=== PATIENT | female | born 1985 | race Caucasian/White ===

== ENCOUNTER → 2016-05-28 | Outpatient (CLI) | payer MEDICARE, MEDICAID ==
[~2016-05-28] MED LIST: COLA100C PO; IBUP80TA PO; LAMI1TAB7 PO; LAMI25TA PO; NUVAMIS2 VA; TYLE325T5 PO
--- NOTE | 2016-05-28 13:08 | REP ---
ULTRASOUND LEFT BREAST: Real-time sonographic evaluation of left breast performed status post trauma 1 day ago. Patient has had pain and bloody discharge with a retroareolar lump. The sonogram shows dilated ducts with internal debris. No discrete cystic or solid mass is seen. IMPRESSION: ACR 2 benign. At the site of the reported retroareolar abnormality, there are dilated ducts containing internal debris without a cystic or solid mass. Signed by Dinesh Gaitan MD 05/29/2016 04:36 P
== END ==
LOC: M RAD 11:08
PROVIDERS: ATTEND Physician Assistant Medical
DX: N64.52 Nipple discharge (principal); N63 Unspecified lump in breast; R92.8 Other abnormal and inconclusive findings on diagnostic imaging of breast

== ENCOUNTER → 2016-08-22 | Outpatient (REF) | payer MEDICARE, MEDICAID ==
[~2016-08-22] MED LIST changes: -COLA100C PO; +COLA100C3 PO
== END ==
LOC: M LAB REF 10:27
PROVIDERS: ATTEND Physician Assistant Medical
DX: N39.0 Urinary tract infection, site not specified (principal); Z20.2 Contact with and (suspected) exposure to infections with a predominantly sexual mode of transmission; Z11.3 Encounter for screening for infections with a predominantly sexual mode of transmission

== ENCOUNTER 2016-10-01 10:45 | Emergency (ER) | payer MEDICARE, MEDICAID ==
[~2016-10-01] VITALS: Ht 160 cm; Wt 86.3 kg
[~2016-10-01 10:45] MED LIST changes: -COLA100C3 PO; +COLA100C5 PO
[2016-10-01] MEDS ORDERED: AMIT25TA PO (10:58)
[2016-10-01] MEDS ORDERED: KLON0.5T PO (10:58)
[2016-10-01] MEDS ORDERED: LAMI1TAB9 PO (10:58)
[2016-10-01 12:58] VITALS: BP 127/68
--- NOTE | 2016-10-01 13:14 | REP ---
Focused bilateral subareolar breast sonography: History: Areolar pain. Question abscess. The patient reports a lump adjacent to the left nipple which has " gotten smaller". Present since May. Findings: Subareolar sonography of the right breast shows no abnormality, done for comparison. Just posterior and along the medial aspect of the left nipple is a small hypoechoic area consistent with fluid collection measuring 0.8 x 0.7 x 0.6 cm. A tiny abscess cannot be excluded. Followup is advised. Impression: 0.8 cm irregular fluid collection just deep and medial to the left nipple. Abscess cannot be excluded. Suggest followup. Signed by Jeffy Greco MD 10/01/2016 02:04 P
[2016-10-01] MEDS ORDERED: IBUP-1022 PO (13:44)
--- NOTE | 2016-10-02 15:04 | ED PDOC ---
Post-Departure Follow-Up heide moe faxed formal report of breast us for fu Chichi Curiel MD Oct 02, 2016 15:04
[2016-11-14] MEDS ORDERED: NITR2OI (11:30)
== END 2016-10-01 14:07 | disposition home or self-care (01) ==
LOC: M ED 10:45
DX: N60.02 Solitary cyst of left breast (principal); F31.9 Bipolar disorder, unspecified; F17.200 Nicotine dependence, unspecified, uncomplicated; Z79.899 Other long term (current) drug therapy

== ENCOUNTER 2016-10-18 21:21 | Emergency (ER) | payer MEDICARE, MEDICAID ==
[~2016-10-18] VITALS: Ht 160 cm; Wt 86.4 kg
[~2016-10-18 21:21] MED LIST changes: +AMIT25TA PO; +IBUP-1022 PO; +KLON0.5T PO; +LAMI1TAB9 PO
[2016-10-18] MEDS ORDERED: AMAN100T PO (21:37)
[2016-10-18] MEDS ORDERED: methylPREDNISolone INJ 125 MG/2 ML VIAL (J2930) IM ONE (21:45)
[2016-10-18] MEDS ORDERED: FAMOTIDINE 20 MG TAB PO ONE (21:45)
[2016-10-18] MEDS ORDERED: ALBUTEROL 90 MCG/ACT 8GM HFA INHALER INH ONE (21:45)
[2016-10-18 22:27] VITALS: BP 136/67
[2016-11-14] MEDS ORDERED: NITR2OI (11:30)
== END 2016-10-18 22:26 | disposition home or self-care (01) ==
LOC: M ED 21:21
DX: T78.49XA Other allergy, initial encounter (principal); F17.210 Nicotine dependence, cigarettes, uncomplicated; E66.9 Obesity, unspecified; F99 Mental disorder, not otherwise specified; Y92.89 Other specified places as the place of occurrence of the external cause; Y99.9 Unspecified external cause status; Y93.9 Activity, unspecified; Z79.899 Other long term (current) drug therapy
CPT/HCPCS: 96372; 99282; J2930

== ENCOUNTER 2016-10-20 17:20 | Emergency (ER) | payer MEDICARE, MEDICAID ==
[~2016-10-20] VITALS: Ht 160 cm; Wt 86.9 kg
[~2016-10-20 17:20] MED LIST changes: +AMAN100T PO
[2016-10-20] MEDS ORDERED: LORATADINE 10 MG TAB PO ONE (18:15)
[2016-10-20] MEDS ORDERED: dexameTHASONE 20 MG/5 ML VIAL (J1100) IM ONE (18:15)
[2016-10-20] MEDS ORDERED: IBUPROFEN 800 MG TAB PO ONE (18:15)
--- NOTE | 2016-10-20 19:03 | REP ---
SOFT-TISSUE NECK SERIES: 10/20/2016. Clinical history: Difficulty swallowing. Comparison: Three-view cervical spine 2010. Findings: There is no torticollis or lateral bending on the AP view. The dens appears intact. Its relationship to C1 on the lateral view is normal. There is no prevertebral swelling or radiopaque foreign body. The nasopharynx, oropharynx and hypopharynx intact. Vertebral bodies intact. Slight reversal of lordosis similar to the study 6 years ago. The trachea and subglottic trachea without significant finding. Impression: 1. I do not see evidence of significant abnormality of the soft tissues of the neck. Incidentally noted are metallic studs in the nose and lower lip. No other findings. No foreign body. Signed by Varun Kraus MD 10/20/2016 09:28 P
[2016-10-20] MEDS ORDERED: MEDR4PAK PO (19:10)
[2016-10-20 19:16] VITALS: BP 115/63
[2016-11-14] MEDS ORDERED: NITR2OI (11:30)
== END 2016-10-20 19:24 | disposition home or self-care (01) ==
LOC: M ED 17:20
DX: T78.40XA Allergy, unspecified, initial encounter (principal); X58.XXXA Exposure to other specified factors, initial encounter; Y92.9 Unspecified place or not applicable; Y93.9 Activity, unspecified; Y99.8 Other external cause status; R13.10 Dysphagia, unspecified; R07.0 Pain in throat; F31.9 Bipolar disorder, unspecified; F17.200 Nicotine dependence, unspecified, uncomplicated
CPT/HCPCS: 70360; 96372; 99282; J1100

== ENCOUNTER → 2016-11-03 | Outpatient (CLI) | payer MEDICARE, MEDICAID ==
[~2016-11-03] MED LIST changes: +HYDR-3713 PO; +LIDOCAINE 1% MDV 20ML VIAL As Ordered ONE; +MEDR4PAK PO; +NITR2OI
--- NOTE | 2016-11-03 12:36 | REP ---
ULTRASOUND LEFT BREAST: Real-time sonographic evaluation of the left breast is performed prior to a scheduled fluid aspiration in the left retroareolar region. This 8 mm fluid collection was seen on the prior ultrasound 10/01/2016. Today's ultrasound shows soft tissue edema with some hyperemia with Doppler color evaluation. There are some dilated ducts. No discrete fluid collection is seen and therefore, fluid drainage was not performed. Reportedly, there is a palpable abnormality at 9 -o'clock position. A skin lesion in this region expressed some complex, somewhat bloody fluid which was sent for Gram stain, culture and sensitivity. Signed by Dinesh Gaitan MD 11/03/2016 12:54 P
== END ==
LOC: M RADPRO 08:42
PROVIDERS: ATTEND Surgery
DX: N63 Unspecified lump in breast (principal); M79.9 Soft tissue disorder, unspecified; N64.59 Other signs and symptoms in breast; N60.42 Mammary duct ectasia of left breast; Z88.2 Allergy status to sulfonamides; Z88.0 Allergy status to penicillin; Z88.8 Allergy status to other drugs, medicaments and biological substances
CPT/HCPCS: 76642; 87070; 87075; 87076; 87205; G0463

== ENCOUNTER 2016-11-21 09:00 | Day surgery (SDC) | payer MEDICARE, MEDICAID ==
[~2016-11-21] VITALS: Ht 160 cm; Wt 87.5 kg
[~2016-11-21 09:00] MED LIST changes: -HYDR-3713 PO; -LIDOCAINE 1% MDV 20ML VIAL As Ordered ONE; +LR 1,000 ML IV ONE
[2016-11-21] MEDS ORDERED: LIDOCAINE 2% INJ 100 MG/5 ML SDV (FOR ANES.) As Ordered ONE (09:13)
[2016-11-21] MEDS ORDERED: PROPOFOL 200 MG/20 ML VIAL As Ordered ONE (09:13)
[2016-11-21] MEDS ORDERED: MIDAZOLAM INJ 2 MG/2 ML VIAL (J2250) As Ordered ONE (09:14)
[2016-11-21] MEDS ORDERED: fentaNYL 100 MCG/2 ML INJECTION (J3010) As Ordered ONE (09:14)
[2016-11-21 09:28] LABS: CONTROL LINE UCG INT CTR LINE PRESENT
[2016-11-21 09:34] VITALS: BP 113/60
[2016-11-21] MEDS ORDERED: KETOROLAC 60 MG/2 ML VIAL (J1885) As Ordered ONE ×2 (09:37→11:09)
[2016-11-21] MEDS ORDERED: CLINDAMYCIN 600 MG/50 ML PREMIX BAG As Ordered ONE (09:55)
[2016-11-21] MEDS ORDERED: CLINDAMYCIN 600 MG in APPROPRIATE DILUENT 1 EA IV ONE (10:00)
[2016-11-21] MEDS ORDERED: LIDOCAINE 1% SDV INJ 30 ML VIAL As Ordered ONE (10:18)
[2016-11-21] MEDS ORDERED: LIDOCAINE W/EPINEPHRINE 1% 20ML VIAL As Ordered ONE (10:18)
[2016-11-21] MEDS ORDERED: BUPIVACAINE HCL 0.25% 30 ML VIAL As Ordered ONE (11:03)
[2016-11-21] MEDS ORDERED: ONDANSETRON 4MG/2ML VIAL (J2405) As Ordered ONE (11:09)
[2016-11-21] MEDS ORDERED: HYDR-3713 PO (11:42)
--- NOTE | 2016-12-01 12:05 | ROOPDOC ---
[facility] Report Of Operation Report of Operation DATE OF PROCEDURE: 11/21/16 PREPROCEDURE DIAGNOSES: Recurrent nipple discharge, drainage, periductal mastitis, left breast POSTPROCEDURE DIAGNOSES: Periductal mastitis, left breast. PROCEDURE: Single quadrant ductal excision with lumpectomy (upper inner quadrant from 10 to 12 o'clock position) SURGEON: Christiano Bauer MD VACUUM CLOSING MACHINE OPERATOR: None ANESTHESIA: Gen. anesthesia via LMA. ESTIMATED BLOOD LOSS: Approximately 5 mLs COMPLICATIONS: None. REMARKS/OPERATIVE FINDINGS: She has 2 ductal areas with inducible drainage one at the 3 o'clock position and the other at the 9 o'clock position also at the center of the nipple. This were cannulated with a lacrimal probe. The duct over at a 9 o'clock position appears closed. The duct at the 3 o'clock position was able to be cannulated and appears to be directed towards an area at the upper inner quadrant of the breast where there is a palpable cystic nodularity that is tender to the patient during my clinical examination. The ducts and breast tissue underneath the upper inner quadrant is nodular, slightly hard and consistent with previous inflammatory reaction to the area though I did not feel appropriate any significant, dominant masses. PROCEDURE NOTE: 31-year-old female with recurrent purulent drainage from multiple ducts on her left breast with failed treatment with antibiotics.. DESCRIPTION OF PROCEDURE: The patient was taken to the operating room and placed supine on the operating table and general anesthesia was induced using LMA. She received a dose of 600 mg clindamycin IV preoperatively for wound prophylaxis given multiple breast infections. A time-out was completed verifying correct patient, procedure, site , positioning, and implant( s) and/ or special equipment prior to beginning this procedure. The left chest axilla, and arm were prepped and draped in the usual sterile fashion. A lacrimal duct probe was used to cannulate the draining duct at the 3 oclock location on the nipple. The relevant quadrant was identified and mixture of 1 % lidocaine without epinephrine and 0.25% Marcaine was used to infiltrate the region. A circumareolar/ radially oriented incision was made and flaps were elevated. Using the lacrimal duct probe as a guide, the involved duct was excised sharply from its termination on the nipple with a wedge-shaped portion of the proximal breast tissue. Additional local anesthesia was infiltrated as needed throughout the case and The wound was checked for adequate hemostasis and bleeding points cauterized. The subcutaneous tissue immediately under the skin was approximated with interrupted 3-0 Vicryl sutures. No attempt was made to close the space. The breast tissue was approximated with 3-0 Vicryl. The skin was closed with a subcuticular suture of running 4-0 Monocry. Dermabond dressing was applied on top of the incision. The patient tolerated the procedure well and was taken to the postanesthesia care unit in stable condition. CHRISTIANO BAEUR MD Dec 01, 2016 12:05
--- NOTE | 2016-12-01 12:11 | IPNPDOC ---
Text Note Date of Service Patient underwent ductal excision of the left breast. NOTE Patient uneventfully went for a duct excision of a recurrent left breast abscess , purulent drainage. She was suspected periductal mastitis. This was done under general anesthesia under LMA. On being brought to the recovery room, patient was awake but noticeably agitated. She claims that her incision was left open so on my examination the incision remains intact with a Dermabond dressing on top of the incision. There is a usual coagulated blood underneath the Dermabond glue. No breast swelling or hematoma was noted. Patient was removing her monitoring leads in was not willing to be monitored postoperatively. Anesthesia as well as the perioperative nursing team was present trying to calm her down to no avail. I made a call to psychiatry to have her be evaluated but the patient walked out off the hospital before this can be done. I also made a call to her next of kin to inform them of what was going on and to talk to her and calm her down. After making the calls, I returned to the patient's cubicle she was already dressed and on her phone. She would not take the phone call from her next of kin which turned out to be her mother. Despite everyone doing her best trying to calm her down she persisted getting out of the operating room suite and left the hospital on her own accord. Calls were made to the administration secondary education professor with regards to what to do with the circumstances I have never experienced this previously. Patient appears well oriented though visibly agitated. She walked towards the [facility] on her phone. I further gave call to her mother as well as to her sister was supposed to pick her up to inform them of what was going on. EBE WOODALL MD Dec 01, 2016 12:11
== END 2016-11-21 12:07 | disposition home or self-care (01) ==
LOC: M SDC 09:00
PROVIDERS: ATTEND Surgery
DX: N61.0 Mastitis without abscess (principal); K60.2 Anal fissure, unspecified; F31.9 Bipolar disorder, unspecified; F41.9 Anxiety disorder, unspecified; Z88.0 Allergy status to penicillin; Z88.1 Allergy status to other antibiotic agents; Z88.2 Allergy status to sulfonamides; Z88.8 Allergy status to other drugs, medicaments and biological substances; Z79.899 Other long term (current) drug therapy; Z72.0 Tobacco use
CPT/HCPCS: 19110; 84703; 88305; 96374; J1885; J2250; J2405; J3010

== ENCOUNTER → 2016-12-11 | Outpatient (REF) | payer MEDICARE, MEDICAID ==
[~2016-12-11] MED LIST changes: +HYDR-3713 PO; -LR 1,000 ML IV ONE
== END ==
LOC: M LAB REF 13:16
PROVIDERS: ATTEND Otolaryngology
DX: R22.9 Localized swelling, mass and lump, unspecified (principal)

== ENCOUNTER → 2016-12-31 | Outpatient (CLI) | payer MEDICARE, MEDICAID ==
[2017-01-04 12:26] LABS: IMMUNOGLOBULIN E, TOTAL 45 IU/mL (0-100)
== END ==
LOC: M LAB 12:33
PROVIDERS: ATTEND Surgery
DX: Z01.82 Encounter for allergy testing (principal)

== ENCOUNTER 2017-02-05 12:12 | Emergency (ER) | payer MEDICARE, MEDICAID ==
[~2017-02-05] VITALS: Ht 160 cm; Wt 90.5 kg
[2017-02-05 12:13] VITALS: BP 142/79
[2017-02-05] MEDS ORDERED: ABIL1INJ IM (12:22)
== END 2017-02-05 13:18 | disposition left against medical advice (07) ==
LOC: M ED 12:12
DX: Z53.21 Procedure and treatment not carried out due to patient leaving prior to being seen by health care provider (principal)

== ENCOUNTER 2017-02-19 16:01 | Emergency (ER) | payer MEDICARE, MEDICAID ==
[~2017-02-19 16:01] MED LIST changes: +ABIL1INJ IM
[2017-02-19 16:02] VITALS: BP 125/61
[2017-02-19 17:34] LABS: MEAN CORPUSCULAR HEMOGLOBIN 30.6 pg (27.0-33.0); MEAN CORPUSCULAR HGB CONC 33.9 g/dl (32.0-36.5); MEAN CORPUSCULAR VOLUME 90.4 fl (80.0-96.0); PLATELET COUNT, AUTOMATED 274 10^3/uL (150-450); RED CELL DISTRIBUTION WIDTH 12.7 % (11.5-14.5)
[2017-02-19 17:43] LABS: CONTROL LINE HCG INT CTR LINE PRESENT
== END 2017-02-19 20:08 | disposition left against medical advice (07) ==
LOC: M ED 16:01
DX: R10.2 Pelvic and perineal pain (principal); F31.9 Bipolar disorder, unspecified; F17.210 Nicotine dependence, cigarettes, uncomplicated; Z88.0 Allergy status to penicillin; Z32.01 Encounter for pregnancy test, result positive; Z88.1 Allergy status to other antibiotic agents; Z88.2 Allergy status to sulfonamides; Z88.8 Allergy status to other drugs, medicaments and biological substances; Z91.040 Latex allergy status; Z79.899 Other long term (current) drug therapy

== ENCOUNTER 2017-02-20 12:52 | Emergency (ER) | payer MEDICARE, MEDICAID ==
[~2017-02-20] VITALS: Ht 160 cm; Wt 89.5 kg
[2017-02-20 12:53] VITALS: BP 116/58
== END 2017-02-20 15:34 | disposition left against medical advice (07) ==
LOC: M ED 12:52
DX: Z53.21 Procedure and treatment not carried out due to patient leaving prior to being seen by health care provider (principal)

== ENCOUNTER → 2017-04-02 | Outpatient (CLI) | payer MEDICARE, MEDICAID ==
[2017-04-02 14:03] LABS: BASO % 0.2 % (0.0-1.0); EOS # 0.1 10^3/uL (0.0-0.50); EOS % 0.7 % (0.0-3.0); HEMATOCRIT 37.2 % (36.0-47.0); HEMOGLOBIN 12.5 g/dl (12.0-16.0); IMMATURE GRANULOCYTE # 0.1 10^3/uL (0-0); IMMATURE GRANULOCYTE % 0.5 % (0-0); LYMPH # 2.4 10^3/uL (1.5-6.5); LYMPH % 19.5 % (24.0-44.0); MEAN CORPUSCULAR HEMOGLOBIN 30.1 pg (27.0-33.0); MEAN CORPUSCULAR HGB CONC 33.6 g/dl (32.0-36.5); MEAN CORPUSCULAR VOLUME 89.6 fl (80.0-96.0); MONO # 0.8 10^3/uL (0.0-0.8); MONO % 6.6 % (0.0-5.0); NEUTROPHILS % 72.5 % (36.0-66.0); PLATELET COUNT, AUTOMATED 257 10^3/uL (150-450); RED BLOOD COUNT 4.15 10^6/uL (4.00-5.40); RED CELL DISTRIBUTION WIDTH 13.3 % (11.5-14.5); WHITE BLOOD COUNT 12.4 10^3/uL (4.0-10.0)
[2017-04-02 16:25] LABS: CHLAMYDIA DNA AMPLIFICATION NEGATIVE (NEGATIVE); GC DNA AMPLIFICATION NEGATIVE (NEGATIVE)
[2017-04-03 17:54] LABS: RUBELLA IgG QUALITATIVE IMMUNE (IMMUNE)
[2017-04-03 18:08] LABS: HBsAg Prenatal NEGATIVE (NEGATIVE)
[2017-04-03 18:18] LABS: HEPATITIS C VIRUS ABY INDEX 0.1 INDEX (<0.8)
[2017-04-03 18:28] LABS: HIV 1&2 SCREEN CENTAUR NEGATIVE (NEGATIVE)
== END ==
LOC: M SMT 11:23
DX: Z36.89 Encounter for other specified antenatal screening (principal); Z3A.01 Less than 8 weeks gestation of pregnancy
CPT/HCPCS: 86762

== ENCOUNTER → 2017-05-25 | Outpatient (CLI) | payer MEDICARE, MEDICAID | LOC: M RAD 13:04 | DX: Z36.89 Encounter for other specified antenatal screening (principal); Z3A.20 20 weeks gestation of pregnancy | CPT/HCPCS: 76811 ==

== ENCOUNTER → 2017-07-03 | Outpatient (CLI) | payer MEDICARE, MEDICAID ==
[2017-07-03 13:05] LABS: HEMATOCRIT 31.2 % (36.0-47.0); HEMOGLOBIN 10.5 g/dl (12.0-15.5); MEAN CORPUSCULAR HEMOGLOBIN 30.7 pg (27.0-33.0); MEAN CORPUSCULAR HGB CONC 33.7 g/dl (32.0-36.5); MEAN CORPUSCULAR VOLUME 91.2 fl (80.0-96.0); PLATELET COUNT, AUTOMATED 226 10^3/uL (150-450); RED BLOOD COUNT 3.42 10^6/uL (4.00-5.40); RED CELL DISTRIBUTION WIDTH 13.2 % (11.5-14.5); WHITE BLOOD COUNT 12.8 10^3/uL (4.0-10.0)
[2017-07-03 13:43] LABS: GLUCOSE CHALLENGE TEST 1 HOUR 125 MG/DL (LESS THAN 140)
[2017-07-06 08:44] LABS: RH ONLY RHOGAM 1 1
== END ==
LOC: M SMT 10:38
DX: Z36.89 Encounter for other specified antenatal screening (principal); Z3A.00 Weeks of gestation of pregnancy not specified
CPT/HCPCS: 82950

== ENCOUNTER 2017-10-10 15:53 | Inpatient (IN) | payer MEDICARE, MEDICAID ==
[2017-10-10] MEDS: miSOPROStol 50 MCG 1/2 TAB (S0191) PO (17:09)
[2017-10-10 17:14] LABS: HEMATOCRIT 31.2 % (36.0-47.0); HEMOGLOBIN 10.6 g/dl (12.0-15.5); MEAN CORPUSCULAR VOLUME 85.2 fl (80.0-96.0); PLATELET COUNT, AUTOMATED 210 10^3/uL (150-450); RED BLOOD COUNT 3.66 10^6/uL (4.00-5.40); RED CELL DISTRIBUTION WIDTH 14.1 % (11.5-14.5); WHITE BLOOD COUNT 13.6 10^3/uL (4.0-10.0)
[2017-10-10 17:36] LABS: AMPHETAMINES URINE REFLEX NEGATIVE (NEGATIVE); BARBITURATES URINE REFLEX NEGATIVE (NEGATIVE); BENZODIAZEPINES URINE REFLEX NEGATIVE (NEGATIVE); COCAINE METABOLITE URINE REFLE NEGATIVE (NEGATIVE); METHADONE URINE REFLEX NEGATIVE (NEGATIVE); OPIATES URINE REFLEX NEGATIVE (NEGATIVE); PHENCYCLIDINE URINE REFLEX NEGATIVE (NEGATIVE)
[2017-10-10 17:48] LABS: CANNABINOIDS URINE REFLEX PENDING CONFIRMATION (NEGATIVE)
[2017-10-10] MEDS: LR 1,000 ML IV (21:26)
[2017-10-10] MEDS: OXYTOCIN DRIP 30 UNITS in APPROPRIATE DILUENT 1 EA IV (21:30)
[2017-10-10] MEDS: FAMOTIDINE 20 MG TAB PO (22:43)
[2017-10-11] MEDS ORDERED: FENTANYL 2MCG/ML ROPIVACAINE 0.2% IN 0.9% NACL 200ML IVBAG As Ordered (00:10)
[2017-10-11] MEDS: LR 1,000 ML IV ×5 (01:14→14:00)
[2017-10-11] MEDS ORDERED: EPIDURAL/PCA KEYS XX (01:15)
[2017-10-11] MEDS ORDERED: ONDANSETRON 4MG/2ML VIAL (J2405) IV ×4 (01:15→14:00)
[2017-10-11] MEDS ORDERED: NALOXONE INJ 0.4 MG/1 ML VIAL (J2310) IV ×3 (01:15→13:36)
[2017-10-11] MEDS ORDERED: diphenhydrAMINE INJ 50MG/ML VIAL (J1200) IV (01:15)
[2017-10-11] MEDS ORDERED: EPIDURAL COMMENT XX (01:15)
[2017-10-11] MEDS ORDERED: ePHEDrine SULFATE 25 MG/5 ML(5MG/ML) SYRINGE IV (01:15)
[2017-10-11] MEDS ORDERED: FENTANYL/ROPIVACAINE/NACL BAG 200 ML EPIDURAL (01:15)
[2017-10-11] MEDS ORDERED: LACTATED RINGER'S 1000 ML IV (01:15)
[2017-10-11] MEDS ORDERED: REFRIGERATOR IV KEYS XX (01:15)
[2017-10-11] MEDS: PRENATAL VITAMINS CHEWABLE TABLET PO (09:00)
[2017-10-11] MEDS: DOCUSATE SODIUM 100 MG CAP PO ×2 (09:00→20:44)
[2017-10-11] MEDS ORDERED: BICITRA 30ML SOLN UDC As Ordered (11:44)
[2017-10-11] MEDS ORDERED: ceFAZolin 2 GM/D5W 50 ML IV BAG (J0690 PER 500MG) As Ordered (11:45)
[2017-10-11] MEDS ORDERED: EPINEPHrine INJ 1 MG/ML 1ML AMP As Ordered (11:51)
[2017-10-11] MEDS ORDERED: LIDOCAINE PRES-FREE 2% 10ML AMP As Ordered ×2 (11:51)
[2017-10-11] MEDS: LACTATED RINGER'S 1000 ML IV (11:54)
[2017-10-11] MEDS ORDERED: AZITHROMYCIN INJ 500MG VIAL (J0456) As Ordered (11:54)
[2017-10-11] MEDS: BICITRA 30ML SOLN UDC PO (12:11)
[2017-10-11] MEDS: AZITHROMYCIN INJ 500 MG, VIAL MATE ADAPTER 1 EACH in D5W 250 ML IV (12:12)
[2017-10-11] MEDS ORDERED: OXYTOCIN INJ 10 UNITS/ML VIAL (J2590) As Ordered ×4 (12:14)
[2017-10-11] MEDS ORDERED: PROMETHAZINE 25 MG TAB PO (12:30)
[2017-10-11] MEDS ORDERED: RHOGAM 300 MCG (1500 IU) INJ (J2790) IM (12:30)
[2017-10-11] MEDS ORDERED: PERCOCET 5MG/325MG TAB PO (12:30)
[2017-10-11] MEDS ORDERED: MEASLES,MUMPS,RUBELLA VACCINE INJ (MMR-II) (90707) SC (12:30)
[2017-10-11] MEDS ORDERED: ONDANSETRON 4MG/2ML VIAL (J2405) As Ordered (12:32)
[2017-10-11] MEDS ORDERED: KETOROLAC 60 MG/2 ML VIAL (J1885) As Ordered (12:32)
[2017-10-11] MEDS ORDERED: MORPHINE PRES-FREE INJ 10 MG/10 ML VIAL (J2274) As Ordered (12:41)
[2017-10-11 12:58] LABS: ABG BASE EXCESS -3.5 (-2.0-2.0); ABG HCO3 26.1 MEQ/L (22.0-26.0); ABG O2 SATURATION 22.1 % (95.0-99.0); ABG PARTIAL PRESSURE CO2 65.7 mmHg (35.0-45.0); ABG PARTIAL PRESSURE O2 14.5 mmHg (75.0-100.0); ABG STANDARD HCO3 19.6 MEQ/L (22.0-26.0); ABG TOTAL CO2 28.1 MEQ/L (22.0-29.0); ABG pH (ARTERIAL) 7.217 UNITS (7.350-7.450)
[2017-10-11 13:01] LABS: CORD GAS ABE V -6.4; CORD GAS O2 SAT V 64.9 %; CORD GAS PCO2 V 43.1 mmHg; CORD GAS PH V 7.285 UNITS; CORD GAS PO2 V 28.4 mmHg; CORD GAS SBC V 18.5 MEQ/L; CORD GAS TCO2 V 21.4 MEQ/L
[2017-10-11] MEDS ORDERED: METOCLOPRAMIDE INJ 10MG/2ML VIAL (J2765) IV ×2 (13:36→14:00)
[2017-10-11] MEDS ORDERED: fentaNYL 100 MCG/2 ML INJECTION (J3010) IV (14:00)
[2017-10-11] MEDS ORDERED: OXYTOCIN 30 UNITS IN 0.9% NaCl 500ML IV BAG (J2590) As Ordered (14:10)
[2017-10-11] MEDS: OXYTOCIN DRIP 30 UNITS in APPROPRIATE DILUENT 1 EA IV (14:12)
[2017-10-11] MEDS: PERCOCET 5MG/325MG TAB PO (15:19)
[2017-10-11] MEDS: KETOROLAC 30 MG/ML VIAL (J1885) IV (19:24)
[2017-10-11] MEDS: NALBUPHINE HCL 10 MG/ML AMP (J2300) IV (20:45)
[2017-10-11] MEDS ORDERED: PILL CRUSHER/CUTTER 1 EACH XX (21:15)
[2017-10-11] MEDS: FAMOTIDINE 20 MG TAB PO (21:43)
[2017-10-12] MEDS: PERCOCET 5MG/325MG TAB PO ×4 (00:06→20:49)
[2017-10-12] MEDS: KETOROLAC 30 MG/ML VIAL (J1885) IV ×2 (01:25→06:41)
[2017-10-12 06:55] LABS: HEMATOCRIT 25.9 % (36.0-47.0); MEAN CORPUSCULAR HGB CONC 32.8 g/dl (32.0-36.5); MEAN CORPUSCULAR VOLUME 88.4 fl (80.0-96.0); PLATELET COUNT, AUTOMATED 165 10^3/uL (150-450); RED BLOOD COUNT 2.93 10^6/uL (4.00-5.40); RED CELL DISTRIBUTION WIDTH 14.4 % (11.5-14.5); WHITE BLOOD COUNT 14.8 10^3/uL (4.0-10.0)
[2017-10-12 07:07] LABS: HEMOGLOBIN 8.5 g/dl (12.0-15.5)
[2017-10-12] MEDS: NALBUPHINE HCL 10 MG/ML AMP (J2300) IV ×2 (08:14→13:20)
[2017-10-12] MEDS: DOCUSATE SODIUM 100 MG CAP PO ×2 (08:15→20:49)
[2017-10-12] MEDS: FAMOTIDINE 20 MG TAB PO ×2 (08:15→20:49)
[2017-10-12] MEDS: PRENATAL VITAMINS CHEWABLE TABLET PO (08:15)
[2017-10-12] MEDS: IBUPROFEN 800 MG TAB PO ×2 (15:00→23:00)
[2017-10-13] MEDS: PERCOCET 5MG/325MG TAB PO ×2 (02:14→06:42)
[2017-10-13] MEDS: IBUPROFEN 800 MG TAB PO (06:01)
[2017-10-13] MEDS: DOCUSATE SODIUM 100 MG CAP PO (08:40)
[2017-10-13] MEDS: FAMOTIDINE 20 MG TAB PO (08:41)
[2017-10-13] MEDS: PRENATAL VITAMINS CHEWABLE TABLET PO (08:41)
[2017-10-15 15:06] LABS: Cannabinoid Positive (.); GC Carboxy THC 117 ng/mL (Cutoff=10)
== END 2017-10-13 10:00 | disposition home or self-care (01) | DRG 766 ==
LOC: M LDI 15:53 → M OBS 10-11 14:55
PROVIDERS: Advanced Practice Midwife
PROC: 10D00Z1 Extraction of Products of Conception, Low, Open Approach (ICD-10-PCS; principal; 2017-10-11 12:12)
PROC: 0UB70ZZ Excision of Bilateral Fallopian Tubes, Open Approach (ICD-10-PCS; 2017-10-11 12:12)
PROC: 3E0P7GC Introduction of Other Therapeutic Substance into Female Reproductive, Via Natural or Artificial Opening (ICD-10-PCS; 2017-10-11 12:12)
DX: O99.344 Other mental disorders complicating childbirth (principal); Z3A.39 39 weeks gestation of pregnancy; O99.334 Smoking (tobacco) complicating childbirth; F31.9 Bipolar disorder, unspecified; O99.214 Obesity complicating childbirth; O64.0XX0 Obstructed labor due to incomplete rotation of fetal head, not applicable or unspecified; E66.9 Obesity, unspecified; F17.210 Nicotine dependence, cigarettes, uncomplicated; Z30.2 Encounter for sterilization; Z37.0 Single live birth

== ENCOUNTER 2017-10-15 12:02 | Emergency (ER) | payer MEDICARE, MEDICAID ==
[2017-10-15 12:55] LABS: BASO % 0.4 % (0.0-1.0); EOS # 0.3 10^3/uL (0.0-0.50); EOS % 2.6 % (0.0-3.0); HEMATOCRIT 29.4 % (36.0-47.0); HEMOGLOBIN 9.7 g/dl (12.0-15.5); IMMATURE GRANULOCYTE % 1.2 % (0-3.0); LYMPH # 2.4 10^3/uL (1.5-6.5); LYMPH % 21.5 % (24.0-44.0); MONO # 0.6 10^3/uL (0.0-0.8); MONO % 5.6 % (0.0-5.0); NEUTROPHILS # 7.6 10^3/uL (1.8-7.7); NEUTROPHILS % 68.7 % (36.0-66.0); PLATELET COUNT, AUTOMATED 235 10^3/uL (150-450); RED BLOOD COUNT 3.34 10^6/uL (4.00-5.40); RED CELL DISTRIBUTION WIDTH 14.4 % (11.5-14.5); WHITE BLOOD COUNT 11.1 10^3/uL (4.0-10.0)
[2017-10-15 13:39] LABS: ANION GAP 7 MEQ/L (8-16); BLOOD UREA NITROGEN 10 MG/DL (7-18); CALCIUM LEVEL 8.9 MG/DL (8.5-10.1); CARBON DIOXIDE LEVEL 25 MEQ/L (21-32); CHLORIDE LEVEL 113 MEQ/L (98-107); CK-MB VALUE MASS < 1.0 NG/ML (<3.6); CPK CREATINE PHOSPHOKINASE 69 U/L (26-192); CREATININE FOR GFR 0.67 MG/DL (0.55-1.30); GLOMERULAR FILTRATION RATE > 60.0 (>60); GLUCOSE, FASTING 77 MG/DL (70-100); MB/CK RELATIVE INDEX 1.44 (< OR =4); POTASSIUM SERUM 3.8 MEQ/L (3.5-5.1); SODIUM LEVEL 145 MEQ/L (136-145); TROPONIN I < 0.02 NG/ML (< 0.10)
[2017-10-15 14:52] LABS: ALBUMIN 2.4 GM/DL (3.2-5.2); ALKALINE PHOSPHATASE 121 U/L (45-117); ALT/SGPT 55 U/L (12-78); AST/SGOT 32 U/L (7-37); BILIRUBIN,TOTAL 0.2 MG/DL (0.2-1.0); NT-PRO BNP 1904 PG/ML (<125); TOTAL PROTEIN 6.4 GM/DL (6.4-8.2)
[2017-10-15] MEDS: FUROSEMIDE 20 MG/2 ML VIAL (J1940) IV (16:36)
== END 2017-10-15 16:46 | disposition left against medical advice (07) ==
LOC: M ED 12:02
DX: O99.43 Diseases of the circulatory system complicating the puerperium (principal); I50.9 Heart failure, unspecified; R60.0 Localized edema; O99.345 Other mental disorders complicating the puerperium; F31.9 Bipolar disorder, unspecified; O99.335 Smoking (tobacco) complicating the puerperium; F17.200 Nicotine dependence, unspecified, uncomplicated; Z83.3 Family history of diabetes mellitus; Z82.49 Family history of ischemic heart disease and other diseases of the circulatory system; Z88.0 Allergy status to penicillin; Z88.8 Allergy status to other drugs, medicaments and biological substances; Z88.2 Allergy status to sulfonamides; Z79.899 Other long term (current) drug therapy
CPT/HCPCS: J1940

== ENCOUNTER → 2017-10-19 | Outpatient (REF) | payer MEDICARE, MEDICAID ==
[2017-10-19 12:37] LABS: BASO % 0.3 % (0.0-1.0); EOS # 0.2 10^3/uL (0.0-0.50); EOS % 2.1 % (0.0-3.0); HEMATOCRIT 34.1 % (36.0-47.0); HEMOGLOBIN 11.1 g/dl (12.0-15.5); IMMATURE GRANULOCYTE % 0.8 % (0-3.0); LYMPH # 2.3 10^3/uL (1.5-6.5); LYMPH % 19.4 % (24.0-44.0); MEAN CORPUSCULAR HEMOGLOBIN 28.1 pg (27.0-33.0); MEAN CORPUSCULAR HGB CONC 32.6 g/dl (32.0-36.5); MEAN CORPUSCULAR VOLUME 86.3 fl (80.0-96.0); MONO # 0.7 10^3/uL (0.0-0.8); NEUTROPHILS # 8.3 10^3/uL (1.8-7.7); NEUTROPHILS % 71.4 % (36.0-66.0); PLATELET COUNT, AUTOMATED 372 10^3/uL (150-450); RED BLOOD COUNT 3.95 10^6/uL (4.00-5.40); RED CELL DISTRIBUTION WIDTH 14.4 % (11.5-14.5); WHITE BLOOD COUNT 11.6 10^3/uL (4.0-10.0)
[2017-10-19 13:04] LABS: ALBUMIN/GLOBULIN RATIO 0.83 (1.00-1.93); ALKALINE PHOSPHATASE 130 U/L (45-117); ALT/SGPT 29 U/L (12-78); ANION GAP 10 MEQ/L (8-16); AST/SGOT 12 U/L (7-37); BILIRUBIN,TOTAL 0.3 MG/DL (0.2-1.0); BLOOD UREA NITROGEN 10 MG/DL (7-18); CALCIUM LEVEL 8.5 MG/DL (8.5-10.1); CARBON DIOXIDE LEVEL 26 MEQ/L (21-32); CHLORIDE LEVEL 108 MEQ/L (98-107); CREATININE FOR GFR 0.77 MG/DL (0.55-1.30); GLOMERULAR FILTRATION RATE > 60.0 (>60); GLUCOSE, FASTING 82 MG/DL (70-100); NT-PRO BNP 79 PG/ML (<125); POTASSIUM SERUM 4.2 MEQ/L (3.5-5.1); SODIUM LEVEL 144 MEQ/L (136-145); TOTAL PROTEIN 6.6 GM/DL (6.4-8.2)
== END ==
LOC: M SFHCADAM 10:44
DX: I34.0 Nonrheumatic mitral (valve) insufficiency (principal)
CPT/HCPCS: 80053

== ENCOUNTER → 2017-11-02 | Outpatient (REF) | payer MEDICARE, MEDICAID ==
[2017-11-02 15:55] LABS: BASO % 0.4 % (0.0-1.0); EOS # 0.2 10^3/uL (0.0-0.50); EOS % 2.8 % (0.0-3.0); HEMATOCRIT 36.3 % (36.0-47.0); HEMOGLOBIN 11.5 g/dl (12.0-15.5); IMMATURE GRANULOCYTE % 0.4 % (0-3.0); LYMPH # 2.1 10^3/uL (1.5-4.5); LYMPH % 29.6 % (24.0-44.0); MEAN CORPUSCULAR HEMOGLOBIN 27.6 pg (27.0-33.0); MEAN CORPUSCULAR HGB CONC 31.7 g/dl (32.0-36.5); MEAN CORPUSCULAR VOLUME 87.1 fl (80.0-96.0); MONO # 0.5 10^3/uL (0.0-0.8); MONO % 7.2 % (0.0-5.0); NEUTROPHILS # 4.2 10^3/uL (1.8-7.7); NEUTROPHILS % 59.6 % (36.0-66.0); PLATELET COUNT, AUTOMATED 372 10^3/uL (150-450); RED BLOOD COUNT 4.17 10^6/uL (4.00-5.40); RED CELL DISTRIBUTION WIDTH 14.5 % (11.5-14.5); WHITE BLOOD COUNT 7.1 10^3/uL (4.0-10.0)
[2017-11-02 16:34] LABS: ALBUMIN 3.5 GM/DL (3.2-5.2); ANION GAP 8 MEQ/L (8-16); BLOOD UREA NITROGEN 11 MG/DL (7-18); CALCIUM LEVEL 9.1 MG/DL (8.5-10.1); CARBON DIOXIDE LEVEL 26 MEQ/L (21-32); CHLORIDE LEVEL 109 MEQ/L (98-107); CREATININE FOR GFR 0.78 MG/DL (0.55-1.30); GLOMERULAR FILTRATION RATE > 60.0 (>60); GLUCOSE, FASTING 90 MG/DL (70-100); MAGNESIUM LEVEL 2.1 MG/DL (1.8-2.4); PHOSPHORUS LEVEL 3.3 MG/DL (2.5-4.9); POTASSIUM SERUM 4.4 MEQ/L (3.5-5.1); SODIUM LEVEL 143 MEQ/L (136-145); THYROID STIMULATING HORMONE 0.898 uIU/ML (0.358-3.740); THYROXINE (T4) 11.9 UG/DL (4.5-12.0)
== END ==
LOC: M LABDRAW1 10:46
DX: O99.03 Anemia complicating the puerperium (principal); I50.41 Acute combined systolic (congestive) and diastolic (congestive) heart failure; I34.0 Nonrheumatic mitral (valve) insufficiency; Z68.39 Body mass index [BMI] 39.0-39.9, adult
CPT/HCPCS: 83735

== ENCOUNTER → 2018-03-04 | Outpatient (REF) | payer MEDICARE, MEDICAID ==
[~2018-03-04] MED LIST changes: +ABIL300I; +CLON0.5T8; +PERC5TAB12; +PERCOCET PO; +PREN1TAB18 PO
[2018-03-04 15:21] LABS: CHLAMYDIA DNA AMPLIFICATION NEGATIVE (NEGATIVE); GC DNA AMPLIFICATION NEGATIVE (NEGATIVE)
== END ==
LOC: M SFHCADAM 09:41
PROVIDERS: ATTEND Physician Assistant Medical
DX: Z01.419 Encounter for gynecological examination (general) (routine) without abnormal findings (principal); Z11.3 Encounter for screening for infections with a predominantly sexual mode of transmission; R87.5 Abnormal microbiological findings in specimens from female genital organs; N94.9 Unspecified condition associated with female genital organs and menstrual cycle
CPT/HCPCS: 87070; 87205; 87491; 87591; 96372; G0123; G0463; J0696

== ENCOUNTER → 2018-08-23 | Outpatient (REF) | payer MEDICARE, MEDICAID | LOC: M SFHCADAM 11:16 | PROVIDERS: ATTEND Physician Assistant Medical | DX: Z20.828 Contact with and (suspected) exposure to other viral communicable diseases (principal) | CPT/HCPCS: 86580; 86765; G0463 ==

== ENCOUNTER → 2018-12-13 | Outpatient (REF) | payer MEDICARE, MEDICAID ==
[2018-12-13 19:12] LABS: BASO # 0.1 10^3/uL (0.0-0.2); BASO % 0.5 % (0.0-1.0); EOS # 0.2 10^3/uL (0.0-0.5); EOS % 1.7 % (0.0-3.0); HEMATOCRIT 37.9 % (36.0-47.0); HEMOGLOBIN 12.6 g/dl (12.0-15.5); LYMPH # 2.7 10^3/uL (1.5-5.0); LYMPH % 25.4 % (24.0-44.0); MEAN CORPUSCULAR HEMOGLOBIN 29.6 pg (27.0-33.0); MEAN CORPUSCULAR HGB CONC 33.2 g/dl (32.0-36.5); MONO # 0.7 10^3/uL (0.0-0.8); MONO % 6.5 % (0.0-5.0); NEUTROPHILS # 7.1 10^3/uL (1.5-8.5); NEUTROPHILS % 65.4 % (36.0-66.0); PLATELET COUNT, AUTOMATED 296 10^3/uL (150-450); RED BLOOD COUNT 4.26 10^6/uL (4.00-5.40); WHITE BLOOD COUNT 10.8 10^3/uL (4.0-10.0)
[2018-12-13 20:02] LABS: ERYTHROCYTE SEDIMENTATION RATE 14 mm/hr (0-20)
== END ==
LOC: M SFHCPLAZ 14:10
PROVIDERS: ATTEND Physician Assistant Medical
DX: R59.0 Localized enlarged lymph nodes (principal)
CPT/HCPCS: 36415; 85025; 85652; 86140; G0463

== ENCOUNTER → 2018-12-20 | Outpatient (REF) | payer MEDICARE, MEDICAID ==
[~2018-12-20] MED LIST changes: +AMPH1CAP5 PO; +CLEO2CRE PV; +LAMO100T68 PO
[2018-12-20 16:28] LABS: APPEARANCE, URINE CLOUDY (CLEAR); BACTERIA, URINE AUTO 2+ (NEGATIVE); BILIRUBIN, URINE AUTO NEGATIVE (NEGATIVE); BLOOD, URINE BLOOD 2+ (NEGATIVE); COLOR, URINE YELLOW (YELLOW); GLUCOSE, URINE (UA) AUTO NEGATIVE (NEGATIVE); KETONE, URINE AUTO NEGATIVE (NEGATIVE); LEUKOCYTE ESTERASE, URINE AUTO 3+ (NEGATIVE); MUCUS, URINE SMALL (NEGATIVE); NITRITE, URINE AUTO NEGATIVE (NEGATIVE); PROTEIN, URINE AUTO NEGATIVE (NEGATIVE); RBC, URINE AUTO 5 /HPF (0-3); SPECIFIC GRAVITY URINE AUTO 1.013 (1.002-1.035); SQUAMOUS EPITHELIAL CELL UR AU 11 /HPF (0-6); UROBILINOGEN, URINE AUTO 0.2 mg/dL (0.0-2.0); WBC, URINE AUTO TNTC /HPF (0-3)
[2018-12-20 18:19] LABS: CHLAMYDIA DNA AMPLIFICATION NEGATIVE (NEGATIVE); GC DNA AMPLIFICATION NEGATIVE (NEGATIVE)
== END ==
LOC: M SFHCPLAZ 15:42
PROVIDERS: ATTEND Physician Assistant Medical
DX: R30.0 Dysuria (principal); R31.29 Other microscopic hematuria; Z71.1 Person with feared health complaint in whom no diagnosis is made
CPT/HCPCS: 51798; 81001; 81002; 87088; 87186; 87661; 88108; G0463

== ENCOUNTER 2019-01-04 10:29 | Emergency (ER) | payer MEDICARE, MEDICAID ==
[~2019-01-04] VITALS: Ht 160 cm; Wt 100.5 kg
[~2019-01-04 10:29] MED LIST changes: -AMPH1CAP5 PO; -CLEO2CRE PV; -LAMO100T68 PO
[2019-01-04] MEDS ORDERED: AMPH1CAP5 PO (10:40)
[2019-01-04] MEDS ORDERED: LAMO100T68 PO (10:40)
[2019-01-04 11:46] LABS: BASO % 0.2 % (0.0-1.0); EOS # 0.2 10^3/uL (0.0-0.5); EOS % 2.1 % (0.0-3.0); HEMATOCRIT 41.8 % (36.0-47.0); HEMOGLOBIN 13.9 g/dl (12.0-15.5); LYMPH # 2.7 10^3/uL (1.5-5.0); LYMPH % 30.7 % (24.0-44.0); MEAN CORPUSCULAR HEMOGLOBIN 30.4 pg (27.0-33.0); MEAN CORPUSCULAR HGB CONC 33.3 g/dl (32.0-36.5); MEAN CORPUSCULAR VOLUME 91.5 fl (80.0-96.0); MONO # 0.6 10^3/uL (0.0-0.8); MONO % 7.4 % (0.0-5.0); NEUTROPHILS # 5.1 10^3/uL (1.5-8.5); NEUTROPHILS % 59.3 % (36.0-66.0); PLATELET COUNT, AUTOMATED 258 10^3/uL (150-450); RED BLOOD COUNT 4.57 10^6/uL (4.00-5.40); WHITE BLOOD COUNT 8.7 10^3/uL (4.0-10.0)
[2019-01-04 12:14] LABS: ALBUMIN 3.7 GM/DL (3.2-5.2); ALT/SGPT 28 U/L (12-78); BILIRUBIN,DIRECT < 0.1 MG/DL (0.0-0.2); BILIRUBIN,TOTAL 0.3 MG/DL (0.2-1.0); BLOOD UREA NITROGEN 9 MG/DL (7-18); CALCIUM LEVEL 9.2 MG/DL (8.5-10.1); CARBON DIOXIDE LEVEL 29 MEQ/L (21-32); CHLORIDE LEVEL 108 MEQ/L (98-107); GLOMERULAR FILTRATION RATE > 60.0 (>60); GLUCOSE, FASTING 88 MG/DL (70-100); LIPASE 366 U/L (73-393); POTASSIUM SERUM 4.4 MEQ/L (3.5-5.1); SODIUM LEVEL 141 MEQ/L (136-145); TOTAL PROTEIN 7.1 GM/DL (6.4-8.2)
[2019-01-04] MEDS ORDERED: IBUPROFEN 600 MG TAB PO ONE (12:45)
[2019-01-04 14:21] LABS: CHLAMYDIA DNA AMPLIFICATION NEGATIVE (NEGATIVE); GC DNA AMPLIFICATION NEGATIVE (NEGATIVE)
[2019-01-04] MEDS ORDERED: CLEO2CRE PV (14:50)
--- NOTE | 2019-01-04 14:54 | REP ---
Pelvic sonogram: History: Bilateral pain, left greater than right. Findings: Transabdominal and transvaginal scanning are performed. Uterine dimensions are 8.9 x 4.1 x 6.2 cm. Endometrial echo 0.9 cm thick and centrally placed. No focal uterine mass lesion is seen. No free fluid is noted in the cul-de-sac. Right ovary measures 3.6 x 2.2 x 2.4 cm. Its Doppler flow is normal, resistive index 0.69. Left ovary measures 3.9 x 2.2 x 3.2 cm. Its Doppler flow is normal with resistive index 0.48. There is a 1.8 cm follicle cyst in the left ovary. Impression: Negative pelvic sonography. Electronically Signed by Jeffy Greco MD 01/04/2019 06:47 P
[2019-01-04 15:04] VITALS: BP 124/84
== END 2019-01-04 15:05 | disposition home or self-care (01) ==
LOC: M ED 10:29
DX: N93.9 Abnormal uterine and vaginal bleeding, unspecified (principal); N77.1 Vaginitis, vulvitis and vulvovaginitis in diseases classified elsewhere; Z86.19 Personal history of other infectious and parasitic diseases; I50.9 Heart failure, unspecified; Z87.42 Personal history of other diseases of the female genital tract; Z87.440 Personal history of urinary (tract) infections; F41.9 Anxiety disorder, unspecified; F32.9 Major depressive disorder, single episode, unspecified; F17.200 Nicotine dependence, unspecified, uncomplicated; F12.10 Cannabis abuse, uncomplicated; Z80.41 Family history of malignant neoplasm of ovary; Z79.899 Other long term (current) drug therapy; Z88.0 Allergy status to penicillin; Z88.2 Allergy status to sulfonamides; Z88.8 Allergy status to other drugs, medicaments and biological substances; Z91.040 Latex allergy status

== ENCOUNTER → 2019-05-03 | Outpatient (REF) | payer MEDICARE, MEDICAID ==
[~2019-05-03] MED LIST changes: +AMPH1CAP5 PO; +CLEO2CRE PV; +CLON0.5T2; -CLON0.5T8; +LAMO100T68 PO
[2019-05-03 23:20] LABS: CHLAMYDIA DNA AMPLIFICATION NEGATIVE (NEGATIVE); GC DNA AMPLIFICATION NEGATIVE (NEGATIVE)
== END ==
LOC: M SFHCWAGY 16:42
PROVIDERS: ATTEND Advanced Practice Midwife
DX: Z12.4 Encounter for screening for malignant neoplasm of cervix (principal); R10.2 Pelvic and perineal pain; Z11.3 Encounter for screening for infections with a predominantly sexual mode of transmission
CPT/HCPCS: 87491; 87591; G0101; G0123; G0463

== ENCOUNTER → 2019-05-11 | Outpatient (CLI) | payer MEDICARE, MEDICAID ==
--- NOTE | 2019-05-11 09:52 | REP ---
Pelvic ultrasound for pelvic pain: The study is performed with transabdominal and Doppler ultrasound. The patient declined endovaginal imaging. Comparison is 01/04/2019. The uterus is anteverted. The fundus is slightly retroflexed. The uterus is upper normal size measuring 9.8 x 3.9 x 5.5 cm. The endometrium is not thickened measuring up to 8 mm. The myometrium is unremarkable. Right ovary: The right ovary measures 3.5 x 1.5 x 3.2 cm and is normal size. There is no dominant mass or cyst. There is vascular flow with the Doppler resistive index in the parenchymal arteries measuring 0.65. Left ovary: Left ovary measures 4.4 by 2.1 x 3.2 cm and is normal size. There is no dominant mass or cyst. The there is vascular flow with the Doppler resistive index in the parenchymal arteries measuring 0.57. There is no free fluid in the pelvis. Impression: Essentially negative pelvic ultrasound.
== END ==
LOC: M WHC 07:46
PROVIDERS: ATTEND Advanced Practice Midwife
DX: R10.2 Pelvic and perineal pain (principal); Z79.899 Other long term (current) drug therapy

== ENCOUNTER → 2019-05-11 | Outpatient (CLI) | payer MEDICARE, MEDICAID ==
[2019-05-11 12:02] LABS: HCG, SERUM QUALITATIVE NEGATIVE (NEGATIVE)
[2019-05-11 12:11] LABS: FOLLICLE STIMULATING HORMONE 2.9 mIU/mL; FREE T4 0.85 NG/DL (0.76-1.46); LUTEINIZING HORMONE 4.4 mIU/mL
== END ==
LOC: M PLALAB 08:30
PROVIDERS: ATTEND Advanced Practice Midwife
DX: R10.2 Pelvic and perineal pain (principal)

== ENCOUNTER → 2019-06-16 | Outpatient (REF) | payer MEDICARE, MEDICAID ==
[2019-06-16 16:55] LABS: FREE T4 0.89 NG/DL (0.76-1.46); THYROID STIMULATING HORMONE 1.59 uIU/ML (0.358-3.740)
== END ==
LOC: M SFHCADAM 11:35
PROVIDERS: ATTEND Physician Assistant Medical
DX: E03.9 Hypothyroidism, unspecified (principal)
CPT/HCPCS: 84439; 84443; G0463

== ENCOUNTER → 2019-07-11 | Outpatient (REF) | payer MEDICARE ==
[2019-07-11 19:51] LABS: CHLAMYDIA DNA AMPLIFICATION NEGATIVE (NEGATIVE); GC DNA AMPLIFICATION NEGATIVE (NEGATIVE)
== END ==
LOC: M SFHCWAGY 17:00 → M LAB REF 17:00
PROVIDERS: ATTEND Advanced Practice Midwife
DX: N92.6 Irregular menstruation, unspecified (principal); Z11.3 Encounter for screening for infections with a predominantly sexual mode of transmission

== ENCOUNTER → 2019-08-02 | Outpatient (REF) | payer MEDICARE, MEDICAID ==
[2019-08-02 19:57] LABS: CHLAMYDIA DNA AMPLIFICATION NEGATIVE (NEGATIVE); GC DNA AMPLIFICATION NEGATIVE (NEGATIVE)
== END ==
LOC: M SFHCWAGY 17:42
PROVIDERS: ATTEND Nurse Practitioner Women's Health
DX: N93.0 Postcoital and contact bleeding (principal); Z11.3 Encounter for screening for infections with a predominantly sexual mode of transmission
CPT/HCPCS: 87210; 87661; G0463

== ENCOUNTER → 2019-09-06 | Outpatient (REF) | payer MEDICARE, MEDICAID ==
[~2019-09-06] MED LIST changes: -AMIT25TA PO; +AMIT25TA17 PO; +DECA4TAB PO; +PROAAER10 INH; +VRAY1.5C PO
[2019-09-06 13:42] LABS: BASO % 0.3 % (0.0-1.0); EOS # 0.2 10^3/uL (0.0-0.5); EOS % 1.9 % (0.0-3.0); HEMATOCRIT 40.8 % (36.0-47.0); HEMOGLOBIN 13.3 g/dl (12.0-15.5); LYMPH # 2.8 10^3/uL (1.5-5.0); LYMPH % 30.1 % (24.0-44.0); MEAN CORPUSCULAR HEMOGLOBIN 29.9 pg (27.0-33.0); MEAN CORPUSCULAR HGB CONC 32.6 g/dl (32.0-36.5); MEAN CORPUSCULAR VOLUME 91.7 fl (80.0-96.0); MONO # 0.6 10^3/uL (0.0-0.8); MONO % 6.4 % (0.0-5.0); NEUTROPHILS # 5.6 10^3/uL (1.5-8.5); NEUTROPHILS % 60.9 % (36.0-66.0); PLATELET COUNT, AUTOMATED 290 10^3/uL (150-450); RED BLOOD COUNT 4.45 10^6/uL (4.00-5.40); WHITE BLOOD COUNT 9.2 10^3/uL (4.0-10.0)
[2019-09-06 13:57] LABS: ALBUMIN 3.7 GM/DL (3.2-5.2); ALT/SGPT 25 U/L (12-78); BILIRUBIN,TOTAL 0.5 MG/DL (0.2-1.0); BLOOD UREA NITROGEN 9 MG/DL (7-18); CALCIUM LEVEL 9.2 MG/DL (8.5-10.1); CARBON DIOXIDE LEVEL 27 MEQ/L (21-32); CHLORIDE LEVEL 108 MEQ/L (98-107); CHOLESTEROL LEVEL 202 MG/DL (<200); CREATININE FOR GFR 0.74 MG/DL (0.55-1.30); FREE T4 0.91 NG/DL (0.76-1.46); GLOMERULAR FILTRATION RATE > 60.0 (>60); GLUCOSE, FASTING 91 MG/DL (70-100); HDL CHOLESTEROL 44 MG/DL (>40); LDL CHOLESTEROL 136 MG/DL (<100); NON-HDL-C 158 MG/DL; POTASSIUM SERUM 4.6 MEQ/L (3.5-5.1); SODIUM LEVEL 141 MEQ/L (136-145); TOTAL 25(OH) VITAMIN D 25.1 NG/ML (30.0-100.0); TOTAL PROTEIN 7.3 GM/DL (6.4-8.2); TRIGLYCERIDES LEVEL 110 MG/DL (<150)
== END ==
LOC: M SFHCADAM 10:19
PROVIDERS: ATTEND Physician Assistant Medical
DX: E66.01 Morbid (severe) obesity due to excess calories (principal); E55.9 Vitamin D deficiency, unspecified; E78.5 Hyperlipidemia, unspecified; E03.9 Hypothyroidism, unspecified

== ENCOUNTER → 2019-09-13 | Outpatient (CLI) | payer MEDICARE, MEDICAID ==
[~2019-09-13] MED LIST changes: +AMIT25TA PO; -AMIT25TA17 PO; -DECA4TAB PO; -PROAAER10 INH; -VRAY1.5C PO
--- NOTE | 2019-09-13 13:15 | REP ---
Lumbar spine series: Six views. History: Lumbago with sciatica. Comparison study: June 13, 2019. Findings: Lumbar vertebral body heights are preserved. Alignment is normal. Disc spaces are maintained. Pedicles and posterior elements are intact. There is no evidence of spondylolysis or spondylolisthesis. Sacrum and SI joints are intact. Psoas margins are symmetric. The visualized bowel gas pattern is normal. Impression: Negative lumbar spine radiographs. Electronically Signed by Jeffy Greco MD 09/13/2019 01:07 P
--- NOTE | 2019-09-13 14:14 | REP ---
REASON: Back pain. COMPARISON: None. FINDINGS: Three views of the thoracic spine were obtained. The disc spaces are symmetric and relatively well maintained. There is no acute fracture or destructive osseous lesion. Electronically Signed by Niraj New DO 09/13/2019 05:18 P
== END ==
LOC: M ADAMS 10:20
PROVIDERS: ATTEND Physician Assistant Medical
DX: M54.42 Lumbago with sciatica, left side (principal); M54.41 Lumbago with sciatica, right side
CPT/HCPCS: 72072; 72110; G0463

== ENCOUNTER → 2019-11-01 | Outpatient (REF) | payer MEDICARE, MEDICAID ==
[~2019-11-01] MED LIST changes: +DECA4TAB PO; +PROAAER10 INH; +VRAY1.5C PO
[2019-12-11 13:42] LABS: CHLAMYDIA DNA AMPLIFICATION NEGATIVE (NEGATIVE); GC DNA AMPLIFICATION NEGATIVE (NEGATIVE)
== END ==
LOC: M SFHCWAGY 14:40
PROVIDERS: ATTEND Nurse Practitioner Women's Health
DX: Z11.3 Encounter for screening for infections with a predominantly sexual mode of transmission (principal)
CPT/HCPCS: 87491; 87591; G0463

== ENCOUNTER → 2019-12-30 | Outpatient (REF) | payer MEDICARE, MEDICAID | LOC: M SFHCWAGY 13:09 | PROVIDERS: ATTEND Nurse Practitioner Women's Health | DX: Z11.3 Encounter for screening for infections with a predominantly sexual mode of transmission (principal) | CPT/HCPCS: 87210; 87490; 87590; G0463 ==

== ENCOUNTER 2020-01-17 20:56 | Emergency (ER) | payer MEDICARE, MEDICAID ==
[~2020-01-17] VITALS: Ht 160 cm; Wt 98.9 kg
[~2020-01-17 20:56] MED LIST changes: -DECA4TAB PO; -PROAAER10 INH; -VRAY1.5C PO
[2020-01-17] MEDS ORDERED: VRAY1.5C PO (21:23)
[2020-01-17] MEDS ORDERED: DECA4TAB PO (22:21)
[2020-01-17] MEDS ORDERED: PROAAER10 INH (22:21)
--- NOTE | 2020-01-17 22:29 | REPVR ---
PROCEDURE INFORMATION: Exam: XR Chest, 1 View Exam date and time: 01/17/20 (10:05pm) Age: 34 years old Clinical indication: SOB and cough TECHNIQUE: Imaging protocol: Portable CXR Views: 1 view COMPARISON: Chest films of 10/15/17 FINDINGS: Lungs: Unremarkable. No consolidation. Pleural space: Unremarkable. No pleural effusions. No pneumothorax. Heart/Mediastinum: Unremarkable. No cardiomegaly. Bones/joints: Unremarkable. IMPRESSION: No acute findings. Clear lung wallis. Electronically signed by: Abbey Waddell On 01/17/2020 22:29:39 PM
[2020-01-17] MEDS: COMBIVENT RESPIMAT 100-20MCG INHALER 4GM INH SCH ×2 (22:33→22:34)
[2020-01-17 23:07] VITALS: BP 130/70
== END 2020-01-17 22:47 | disposition home or self-care (01) ==
LOC: M ED 20:56
DX: J06.9 Acute upper respiratory infection, unspecified (principal); J45.909 Unspecified asthma, uncomplicated; F31.81 Bipolar II disorder; E78.5 Hyperlipidemia, unspecified; E55.9 Vitamin D deficiency, unspecified; F17.200 Nicotine dependence, unspecified, uncomplicated; Z88.0 Allergy status to penicillin; Z88.2 Allergy status to sulfonamides; Z88.1 Allergy status to other antibiotic agents; Z88.8 Allergy status to other drugs, medicaments and biological substances; Z91.040 Latex allergy status; Z79.899 Other long term (current) drug therapy
CPT/HCPCS: 71045; 94664; 99283; U0003

== ENCOUNTER → 2020-02-03 | Outpatient (CLI) | payer MEDICARE, MEDICAID ==
[~2020-02-03] MED LIST changes: +DECA4TAB PO; +PROAAER10 INH; +VRAY1.5C PO
== END ==
LOC: M LABDRWAD 14:05
PROVIDERS: ATTEND Nurse Practitioner Psychiatric/Mental Health
DX: F31.81 Bipolar II disorder (principal)

== ENCOUNTER → 2020-02-14 | Outpatient (REF) | payer MEDICARE, MEDICAID ==
[2020-02-14 18:53] LABS: CHLAMYDIA DNA AMPLIFICATION NEGATIVE (NEGATIVE); GC DNA AMPLIFICATION NEGATIVE (NEGATIVE)
== END ==
LOC: M SFHCWAGY 16:46
PROVIDERS: ATTEND Nurse Practitioner Women's Health
DX: Z11.3 Encounter for screening for infections with a predominantly sexual mode of transmission (principal)
CPT/HCPCS: 87210; 87491; 87591; G0463

== ENCOUNTER → 2020-05-18 | Outpatient (REF) | payer MEDICARE, MEDICAID ==
[~2020-05-18] MED LIST changes: -AMIT25TA PO; +AMIT25TA17 PO
[2020-05-18 18:52] LABS: ALBUMIN 3.9 GM/DL (3.2-5.2); ALT/SGPT 39 U/L (12-78); BILIRUBIN,TOTAL 0.3 MG/DL (0.2-1.0); BLOOD UREA NITROGEN 10 MG/DL (7-18); CALCIUM LEVEL 9.3 MG/DL (8.5-10.1); CARBON DIOXIDE LEVEL 30 MEQ/L (21-32); CHLORIDE LEVEL 106 MEQ/L (98-107); CREATININE FOR GFR 0.79 MG/DL (0.55-1.30); GLOMERULAR FILTRATION RATE > 60.0 (>60); GLUCOSE, FASTING 77 MG/DL (70-100); MAGNESIUM LEVEL 1.9 MG/DL (1.8-2.4); NT-PRO BNP 37 PG/ML (<125); SODIUM LEVEL 138 MEQ/L (136-145); TOTAL PROTEIN 7.3 GM/DL (6.4-8.2)
== END ==
LOC: M SFHCADAM 15:51
PROVIDERS: ATTEND Physician Assistant Medical
DX: I34.0 Nonrheumatic mitral (valve) insufficiency (principal); R60.1 Generalized edema

== ENCOUNTER → 2020-06-11 | Outpatient (CLI) | payer MEDICARE, MEDICAID ==
--- NOTE | 2020-06-12 10:47 | ECHO ---
DATE OF PROCEDURE: 06/11/2020 Age: 34 Gender: Female Height: 160 cm Weight: 104 kg REFERRING PHYSICIAN: LAURIE Castañeda. INDICATION: Edema. MEASUREMENTS: IVS 1.0 cm LV 5.6 cm LVPW 0.9 cm LA 4.3 cm Aorta 2.5 cm RV 3.0 cm IVC 1.1 cm Mitral E wave velocity 129 A wave 69 E prime septal 9.4 E prime lateral 13.7 FINDINGS: This study is of acceptable technical quality even though parasternal views were only fair. Patient is in sinus rhythm. Left ventricle is borderline dilated. Overall it appears to have low normal systolic function, I estimate LVEF around 50 to 55%. No definite segmental wall motion abnormalities are appreciated. Right ventricle appears to have normal size and systolic function as well. Both atria appear normal. Aortic, mitral, and tricuspid valves appear normal. Pulmonic valve was not well seen. No pericardial effusion is noted. Inferior vena cava is of normal size and appropriately collapses with inspiration indicative of normal central venous pressure. Aortic root is normal. Aortic arch and abdominal aorta were not well seen. Doppler interrogation of aortic valve reveals no significant stenosis or insufficiency. There is mild mitral and mild tricuspid insufficiency. Unfortunately, quality of TR jet was not sufficient to estimate pulmonary artery pressure. Mitral inflow pattern and tissue Doppler imaging of mitral annulus revealed normal diastolic function. CONCLUSIONS: 1. Study is of acceptable technical quality, underlying sinus rhythm. 2. Borderline dilated left ventricle with overall estimated LVEF 50 to 55%. Normal diastolic function. 3. No significant valvular disease. 4. Likely normal central venous pressure but unable to estimate pulmonary artery pressure. MTDD
== END ==
LOC: M CARPUL 10:06
PROVIDERS: ATTEND Physician Assistant Medical
DX: R60.1 Generalized edema (principal)

== ENCOUNTER → 2020-07-05 | Outpatient (CLI) | payer MEDICARE, MEDICAID | LOC: M LABSMTC 09:39 | PROVIDERS: ATTEND Surgery | DX: Z11.52 Encounter for screening for COVID-19 (principal) ==

== ENCOUNTER → 2020-10-22 | Outpatient (CLI) | payer MEDICARE, MEDICAID ==
--- NOTE | 2020-10-22 13:27 | REP ---
INDICATION: SACROCOCCYGEAL DISORDERS, NOT ELSEWHERE CLASSIFIED. COMPARISON: None. TECHNIQUE: Four images of the sacrum and coccyx were obtained. FINDINGS: The SI joints are normal. There is no evidence of sacrococcygeal fracture. The lower lumbar spine is unremarkable. The hips appear normal. There are no soft tissue abnormalities. IMPRESSION: Normal sacrum and coccyx. <Electronically signed by Bj Vazquez > 10/22/20 1421
== END ==
LOC: M PLAIMG 11:50
PROVIDERS: ATTEND Physician Assistant
DX: M53.3 Sacrococcygeal disorders, not elsewhere classified (principal); W10.8XXA Fall (on) (from) other stairs and steps, initial encounter
CPT/HCPCS: 72220; G0463

== ENCOUNTER 2020-11-12 21:04 | Emergency (ER) | payer MEDICARE, MEDICAID ==
[~2020-11-12] VITALS: Ht 160 cm; Wt 112.5 kg
[2020-11-12 21:05] VITALS: BP 131/79
== END 2020-11-12 22:59 | disposition left against medical advice (07) ==
LOC: M ED 21:04
DX: Z53.29 Procedure and treatment not carried out because of patient's decision for other reasons (principal)

== ENCOUNTER → 2021-02-02 | Outpatient (CLI) | payer MEDICARE, MEDICAID ==
--- NOTE | 2021-02-04 17:32 | SLEEPCENT ---
DATE: 02/02/2021 ORDERED BY: RAKEL Dean Nocturnal polysomnography was performed for evaluation of sleep physiology in this patient with a history of morning headaches and nonrestorative sleep. Six hours and 58 minutes of data were reviewed. There were 306 minutes of sleep identified. Sleep latency was mildly prolonged at 15.5 minutes. REM sleep was not achieved. Sleep architecture showed poor progression with some fragmentation. Overall sleep efficiency was 74.8%. The electrocardiogram showed a sinus rhythm with an average heart rate of 80 beats per minute. EEG showed normal waveforms for wake and sleep. There were 45 respiratory events identified of 10 seconds in duration or greater for an apnea-hypopnea index of 8.8. The events were not exclusive to sleep stage nor body posture. Arousals from respiratory events occurred 2.5 times per hour, and no significant oxygen desaturations below 90% were seen. There was some minor limb activity. Limb movement arousal index was 8.6. IMPRESSION: Obstructive sleep apnea syndrome (G47.33). Apnea-hypopnea index 8.8. RECOMMENDATION: The patient should be encouraged to return to [facility] for [facility]. In the interim, alcohol and sedative avoidance should be practiced and caution exercised during the operation of motor vehicles. cc: Eric Moon MD
== END ==
LOC: M SLEEP 20:00
PROVIDERS: ATTEND Nurse Practitioner Family
DX: R06.83 Snoring (principal); G47.33 Obstructive sleep apnea (adult) (pediatric)

== ENCOUNTER → 2021-04-03 | Outpatient (REF) | LOC: M LABSMTC 09:12 | PROVIDERS: ATTEND Pediatrics | DX: Z11.52 Encounter for screening for COVID-19 (principal) ==

== ENCOUNTER → 2021-06-20 | Outpatient (REF) | payer MEDICARE, MEDICAID ==
[2021-06-20 12:34] LABS: BASO # 0.1 10^3/uL (0.0-0.2); BASO % 0.6 % (0.0-1.0); EOS # 0.2 10^3/uL (0.0-0.5); EOS % 1.7 % (0.0-3.0); HEMATOCRIT 41.3 % (36.0-47.0); HEMOGLOBIN 13.8 g/dl (12.0-15.5); LYMPH # 2.6 10^3/uL (1.5-5.0); LYMPH % 23.2 % (24.0-44.0); MEAN CORPUSCULAR HEMOGLOBIN 30.5 pg (27.0-33.0); MEAN CORPUSCULAR HGB CONC 33.4 g/dl (32.0-36.5); MEAN CORPUSCULAR VOLUME 91.4 fl (80.0-96.0); MONO # 0.8 10^3/uL (0.0-0.8); MONO % 7.4 % (2.0-8.0); NEUTROPHILS # 7.4 10^3/uL (1.5-8.5); NEUTROPHILS % 66.2 % (36.0-66.0); PLATELET COUNT, AUTOMATED 277 10^3/uL (150-450); RED BLOOD COUNT 4.52 10^6/uL (4.00-5.40); WHITE BLOOD COUNT 11.2 10^3/uL (4.0-10.0)
[2021-06-20 13:10] LABS: ALBUMIN 3.7 GM/DL (3.2-5.2); ALT/SGPT 43 U/L (12-78); BILIRUBIN,TOTAL 0.6 MG/DL (0.2-1.0); BLOOD UREA NITROGEN 9 MG/DL (7-18); CALCIUM LEVEL 9.3 MG/DL (8.5-10.1); CARBON DIOXIDE LEVEL 26 MEQ/L (21-32); CHLORIDE LEVEL 108 MEQ/L (98-107); CHOLESTEROL LEVEL 205 MG/DL (<200); CHOLESTEROL RISK RATIO 5.694 (<5); CREATININE FOR GFR 0.73 MG/DL (0.55-1.30); GLOMERULAR FILTRATION RATE > 60.0 (>60); GLUCOSE, FASTING 82 MG/DL (70-100); HDL CHOLESTEROL 36 MG/DL (>40); LDL CHOLESTEROL 146 MG/DL (<100); NON-HDL-C 169 MG/DL; POTASSIUM SERUM 4.5 MEQ/L (3.5-5.1); SODIUM LEVEL 140 MEQ/L (136-145); TOTAL PROTEIN 7.2 GM/DL (6.4-8.2); TRIGLYCERIDES LEVEL 116 MG/DL (<150)
[2021-06-20 13:12] LABS: TOTAL 25(OH) VITAMIN D 15.3 NG/ML (30.0-100.0)
[2021-06-20 17:18] LABS: HEMOGLOBIN A1c 5.9 %
== END ==
LOC: M SFHCADAM 08:48
PROVIDERS: ATTEND Physician Assistant Medical
DX: F31.9 Bipolar disorder, unspecified (principal); E66.01 Morbid (severe) obesity due to excess calories; E55.9 Vitamin D deficiency, unspecified; F17.210 Nicotine dependence, cigarettes, uncomplicated

== ENCOUNTER → 2021-06-20 | Outpatient (REF) | payer MEDICARE, MEDICAID | LOC: M LAB REF 16:02 | PROVIDERS: ATTEND Surgery | DX: L72.3 Sebaceous cyst (principal) ==

== ENCOUNTER → 2021-07-08 | Outpatient (CLI) | payer MEDICARE, MEDICAID ==
[~2021-07-08] MED LIST changes: +ABIL1INJ2 SQ; +BUPR1TAB52 PO; +CEPH500C PO; +LEVO25TA5 PO
== END ==
LOC: M LABSMTC 10:26
PROVIDERS: ATTEND Anesthesiology
DX: Z01.818 Encounter for other preprocedural examination (principal); Z11.52 Encounter for screening for COVID-19

== ENCOUNTER 2021-07-30 20:45 | Emergency (ER) | payer MEDICARE, MEDICAID ==
[~2021-07-30] VITALS: Ht 160 cm; Wt 114.9 kg
[2021-07-30 20:46] VITALS: BP 140/58
[2021-07-30 21:24] LABS: BASO # 0.1 10^3/uL (0.0-0.2); BASO % 0.4 % (0.0-1.0); EOS # 0.3 10^3/uL (0.0-0.5); EOS % 2.4 % (0.0-3.0); HEMATOCRIT 37.5 % (36.0-47.0); HEMOGLOBIN 12.8 g/dl (12.0-15.5); LYMPH # 3.6 10^3/uL (1.5-5.0); MEAN CORPUSCULAR HGB CONC 34.1 g/dl (32.0-36.5); MEAN CORPUSCULAR VOLUME 90.8 fl (80.0-96.0); MONO # 0.6 10^3/uL (0.0-0.8); MONO % 4.6 % (2.0-8.0); NEUTROPHILS # 7.5 10^3/uL (1.5-8.5); PLATELET COUNT, AUTOMATED 290 10^3/uL (150-450); RED BLOOD COUNT 4.13 10^6/uL (4.00-5.40); WHITE BLOOD COUNT 12.1 10^3/uL (4.0-10.0)
[2021-07-30 21:58] LABS: CK-MB VALUE MASS < 1.0 NG/ML (<3.6); CPK CREATINE PHOSPHOKINASE 182 U/L (26-192); MB/CK RELATIVE INDEX 0.55 (< OR =4)
[2021-07-30 22:01] LABS: HCG, SERUM QUALITATIVE NEGATIVE (NEGATIVE)
[2021-07-30 22:05] LABS: ALBUMIN 3.4 GM/DL (3.2-5.2); ALT/SGPT 52 U/L (12-78); BILIRUBIN,DIRECT < 0.1 MG/DL (0.0-0.2); BILIRUBIN,TOTAL 0.2 MG/DL (0.2-1.0); BLOOD UREA NITROGEN 13 MG/DL (7-18); CALCIUM LEVEL 9.3 MG/DL (8.5-10.1); CARBON DIOXIDE LEVEL 28 MEQ/L (21-32); CHLORIDE LEVEL 110 MEQ/L (98-107); CREATININE FOR GFR 0.93 MG/DL (0.55-1.30); GLOMERULAR FILTRATION RATE > 60.0 (>60); GLUCOSE, FASTING 98 MG/DL (70-100); LIPASE 148 U/L (73-393); NT-PRO BNP 38 PG/ML (<125); POTASSIUM SERUM 3.9 MEQ/L (3.5-5.1); SODIUM LEVEL 142 MEQ/L (136-145); TOTAL PROTEIN 6.9 GM/DL (6.4-8.2)
== END 2021-07-31 00:25 | disposition left against medical advice (07) ==
LOC: M ED 20:45
DX: Z53.21 Procedure and treatment not carried out due to patient leaving prior to being seen by health care provider (principal)

== ENCOUNTER → 2021-09-17 | Outpatient (REF) | payer MEDICARE, MEDICAID ==
[2021-09-17 13:18] LABS: APPEARANCE, URINE CLOUDY (CLEAR); BACTERIA, URINE AUTO 2+ (NEGATIVE); BILIRUBIN, URINE AUTO NEGATIVE (NEGATIVE); BLOOD, URINE BLOOD 1+ (NEGATIVE); COLOR, URINE AMBER (YELLOW); GLUCOSE, URINE (UA) AUTO NEGATIVE (NEGATIVE); KETONE, URINE AUTO NEGATIVE (NEGATIVE); LEUKOCYTE ESTERASE, URINE AUTO TRACE (NEGATIVE); MUCUS, URINE SMALL (NEGATIVE); NITRITE, URINE AUTO POSITIVE (NEGATIVE); PROTEIN, URINE AUTO NEGATIVE (NEGATIVE); RBC, URINE AUTO 2 /HPF (0-3); SQUAMOUS EPITHELIAL CELL UR AU 11 /HPF (0-6); UROBILINOGEN, URINE AUTO 0.2 mg/dL (0.0-2.0); WBC, URINE AUTO 23 /HPF (0-3)
== END ==
LOC: M LAB REF 12:30
PROVIDERS: ATTEND Physician Assistant Medical
DX: N39.0 Urinary tract infection, site not specified (principal)

== ENCOUNTER → 2022-05-28 | Outpatient (REF) | payer MEDICARE, MEDICAID ==
[2022-05-28 13:46] LABS: ALBUMIN 3.6 G/DL (3.2-5.2); ALKALINE PHOSPHATASE 99 U/L (46-116); ALT/SGPT 54 U/L (7.0-40); AST/SGOT 23 U/L (<34); BILIRUBIN,TOTAL 0.3 MG/DL (0.3-1.2); BLOOD UREA NITROGEN 17 MG/DL (9-23); CALCIUM LEVEL 9.3 MG/DL (8.5-10.1); CARBON DIOXIDE LEVEL 29 MMOL/L (20-31); CHLORIDE LEVEL 104 MMOL/L (98-107); CHOLESTEROL LEVEL 193 MG/DL (<200); CHOLESTEROL RISK RATIO 4.49 (<5); CREATININE FOR GFR 0.89 MG/DL (0.55-1.30); GLOMERULAR FILTRATION RATE > 60.0 (>60); GLUCOSE, FASTING 100 MG/DL (60-100); HDL CHOLESTEROL 42.9 MG/DL (>40); LDL CHOLESTEROL 118.3 MG/DL (<100); NON-HDL-C 150.1 MG/DL; SODIUM LEVEL 139 MMOL/L (136-145); TOTAL PROTEIN 6.8 G/DL (5.7-8.2); TRIGLYCERIDES LEVEL 159 MG/DL (<150)
[2022-05-28 13:48] LABS: THYROID STIMULATING HORMONE 3.298 uIU/ML (0.55-4.78)
[2022-05-28 13:49] LABS: FREE T4 0.89 NG/DL (0.89-1.76)
[2022-05-28 14:03] LABS: HEMOGLOBIN A1c 5.7 % (4.0-6.0)
== END ==
LOC: M SFHCLERA 08:07
PROVIDERS: ATTEND Student in an Organized Health Care Education/Training Program
DX: R73.03 Prediabetes (principal); E03.9 Hypothyroidism, unspecified; E66.01 Morbid (severe) obesity due to excess calories

== ENCOUNTER → 2022-08-06 | Outpatient (REF) | payer MEDICARE, MEDICAID ==
[~2022-08-06] MED LIST changes: +ETON1VAG7 VA; -NUVAMIS2 VA
== END ==
LOC: M PLALAB 14:37
PROVIDERS: ATTEND Advanced Practice Midwife
DX: Z12.4 Encounter for screening for malignant neoplasm of cervix (principal); R87.5 Abnormal microbiological findings in specimens from female genital organs; R87.618 Other abnormal cytological findings on specimens from cervix uteri
CPT/HCPCS: 87624; G0123

== ENCOUNTER → 2022-12-09 | Outpatient (REF) | payer MEDICARE, MEDICAID ==
[~2022-12-09] MED LIST changes: -AMIT25TA17 PO; +AMIT25TA19 PO
== END ==
LOC: M PLALAB 13:57
PROVIDERS: ATTEND Advanced Practice Midwife
DX: N76.0 Acute vaginitis (principal)

== ENCOUNTER → 2022-12-31 | Outpatient (CLI) | payer MEDICARE, MEDICAID | LOC: M OUTALCOH 08:39 | PROVIDERS: ATTEND Psychiatry & Neurology Psychiatry | DX: F10.10 Alcohol abuse, uncomplicated (principal) ==

== ENCOUNTER → 2023-05-15 | Outpatient (REF) | payer MEDICARE, MEDICAID ==
[~2023-05-15] MED LIST changes: -KLON0.5T PO; +KLON0.5T8 PO
[2023-05-15 18:42] LABS: APPEARANCE, URINE HAZY (CLEAR); BACTERIA, URINE AUTO 1+ (NEGATIVE); BILIRUBIN, URINE AUTO NEGATIVE (NEGATIVE); BLOOD, URINE BLOOD 3+ (NEGATIVE); COLOR, URINE YELLOW (YELLOW); GLUCOSE, URINE (UA) AUTO NEGATIVE (NEGATIVE); KETONE, URINE AUTO NEGATIVE (NEGATIVE); LEUKOCYTE ESTERASE, URINE AUTO TRACE (NEGATIVE); MUCUS, URINE SMALL (NEGATIVE); NITRITE, URINE AUTO POSITIVE (NEGATIVE); PROTEIN, URINE AUTO NEGATIVE (NEGATIVE); RBC, URINE AUTO 1 /HPF (0-3); SQUAMOUS EPITHELIAL CELL UR AU 4 /HPF (0-6); UROBILINOGEN, URINE AUTO 0.2 mg/dL (0.0-2.0); WBC, URINE AUTO 3 /HPF (0-3)
== END ==
LOC: M SFHCLERA 16:43
PROVIDERS: ATTEND Physician Assistant
DX: R30.0 Dysuria (principal)

== ENCOUNTER → 2023-08-21 | Outpatient (CLI) | payer MEDICAID, MEDICARE ==
[2023-08-21 13:32] LABS: HEPATITIS B SURFACE ANTIGEN NEGATIVE (NEGATIVE)
[2023-08-21 13:45] LABS: HIV 1&2 SCREEN NEGATIVE (NEGATIVE)
[2023-08-21 13:53] LABS: HEPATITIS C VIRUS ABY INDEX 0.04 INDEX (<0.8)
[2023-08-21 13:54] LABS: HEPATITIS B CORE ANTIBODY IGM NEGATIVE (NEGATIVE)
== END ==
LOC: M PLALAB 09:03
PROVIDERS: ATTEND Nurse Practitioner Family
DX: L73.2 Hidradenitis suppurativa (principal)

== ENCOUNTER → 2023-08-21 | Outpatient (CLI) | payer MEDICAID, MEDICARE ==
[2023-08-21 13:00] LABS: APPEARANCE, URINE CLEAR (CLEAR); BACTERIA, URINE AUTO NEGATIVE (NEGATIVE); BILIRUBIN, URINE AUTO NEGATIVE (NEGATIVE); BLOOD, URINE BLOOD NEGATIVE (NEGATIVE); COLOR, URINE YELLOW (YELLOW); GLUCOSE, URINE (UA) AUTO NEGATIVE (NEGATIVE); KETONE, URINE AUTO NEGATIVE (NEGATIVE); LEUKOCYTE ESTERASE, URINE AUTO NEGATIVE (NEGATIVE); MUCUS, URINE SMALL (NEGATIVE); NITRITE, URINE AUTO NEGATIVE (NEGATIVE); PROTEIN, URINE AUTO NEGATIVE (NEGATIVE); RBC, URINE AUTO 1 /HPF (0-3); SPECIFIC GRAVITY URINE AUTO 1.018 (1.002-1.035); SQUAMOUS EPITHELIAL CELL UR AU 2 /HPF (0-6); UROBILINOGEN, URINE AUTO 0.2 mg/dL (0.0-2.0); WBC, URINE AUTO 1 /HPF (0-3)
[2023-08-21 13:08] LABS: BASO # 0.1 10^3/uL (0.0-0.2); BASO % 0.7 % (0.0-1.0); EOS # 0.3 10^3/uL (0.0-0.5); EOS % 2.5 % (0.0-3.0); HEMATOCRIT 40.1 % (36.0-47.0); HEMOGLOBIN 13.1 g/dl (12.0-15.5); LYMPH # 3.1 10^3/uL (1.5-5.0); LYMPH % 30.1 % (24.0-44.0); MEAN CORPUSCULAR HEMOGLOBIN 29.7 pg (27.0-33.0); MEAN CORPUSCULAR HGB CONC 32.7 g/dl (32.0-36.5); MEAN CORPUSCULAR VOLUME 90.9 fl (80.0-96.0); MONO # 0.7 10^3/uL (0.0-0.8); MONO % 7.2 % (2.0-8.0); NEUTROPHILS % 58.9 % (36.0-66.0); PLATELET COUNT, AUTOMATED 329 10^3/uL (150-450); RED BLOOD COUNT 4.41 10^6/uL (4.00-5.40); WHITE BLOOD COUNT 10.1 10^3/uL (4.0-10.0)
[2023-08-21 13:15] LABS: ALBUMIN 3.5 G/DL (3.2-5.2); ALKALINE PHOSPHATASE 101 U/L (46-116); ALT/SGPT 39 U/L (7.0-40); AST/SGOT 13 U/L (<34); BILIRUBIN,TOTAL < 0.2 MG/DL (0.3-1.2); BLOOD UREA NITROGEN 10 MG/DL (9-23); CALCIUM LEVEL 9.4 MG/DL (8.5-10.1); CARBON DIOXIDE LEVEL 27 MMOL/L (20-31); CHLORIDE LEVEL 108 MMOL/L (98-107); CHOLESTEROL LEVEL 171 MG/DL (<200); CREATININE FOR GFR 0.77 MG/DL (0.55-1.30); GLOMERULAR FILTRATION RATE > 60.0 (>60); GLUCOSE, FASTING 105 MG/DL (60-100); HDL CHOLESTEROL 41.7 MG/DL (>40); LDL CHOLESTEROL 105.3 MG/DL (<100); NON-HDL-C 129.3 MG/DL; POTASSIUM SERUM 4.5 MMOL/L (3.5-5.1); SODIUM LEVEL 138 MMOL/L (136-145); TOTAL PROTEIN 6.6 G/DL (5.7-8.2); TRIGLYCERIDES LEVEL 120 MG/DL (<150)
[2023-08-21 13:16] LABS: THYROID STIMULATING HORMONE 3.471 uIU/ML (0.55-4.78)
[2023-08-21 13:17] LABS: FOLATE 9.4 NG/ML (>5.4); FREE T4 0.94 NG/DL (0.89-1.76); VITAMIN B12 LEVEL 451 PG/ML (211-911)
[2023-08-21 13:27] LABS: HEMOGLOBIN A1c 5.5 % (4.0-6.0)
== END ==
LOC: M PLALAB 09:06
PROVIDERS: ATTEND Physician Assistant
DX: R30.0 Dysuria (principal); L73.2 Hidradenitis suppurativa; E66.01 Morbid (severe) obesity due to excess calories; F31.9 Bipolar disorder, unspecified; E55.9 Vitamin D deficiency, unspecified; E03.9 Hypothyroidism, unspecified; R73.03 Prediabetes; R20.2 Paresthesia of skin

== ENCOUNTER → 2023-09-21 | Outpatient (REF) | payer MEDICARE | LOC: M LAB REF 08:28 | PROVIDERS: ATTEND Surgery | DX: L72.3 Sebaceous cyst (principal) ==

== ENCOUNTER → 2023-11-27 | Outpatient (CLI) | payer MEDICARE | LOC: M PLAIMG 07:46 | PROVIDERS: ATTEND Orthopaedic Surgery | DX: M54.2 Cervicalgia (principal); M25.512 Pain in left shoulder; M50.33 Other cervical disc degeneration, cervicothoracic region ==

== ENCOUNTER 2024-02-08 22:20 | Emergency (ER) | payer MEDICARE ==
[~2024-02-08] VITALS: Ht 160 cm; Wt 106.3 kg
[2024-02-08 22:24] VITALS: TEMP 96.5
[2024-02-08] MEDS: METHOCARBAMOL 1,000 MG/10 ML VIAL IV ONE (23:49)
[2024-02-08] MEDS: KETOROLAC 30 MG/ML 1ML VIAL IV ONE (23:49)
[2024-02-09] MEDS ORDERED: NAPR-837 PO (00:57)
[2024-02-09] MEDS ORDERED: METH-1165 PO (00:57)
[2024-02-09 01:24] VITALS: BP 128/82; O2SAT 98
== END 2024-02-09 01:25 | disposition home or self-care (01) ==
LOC: M ED 22:20
DX: M62.830 Muscle spasm of back (principal); F17.210 Nicotine dependence, cigarettes, uncomplicated; F12.10 Cannabis abuse, uncomplicated; F10.10 Alcohol abuse, uncomplicated; Z88.0 Allergy status to penicillin; Z88.1 Allergy status to other antibiotic agents; Z88.2 Allergy status to sulfonamides; Z88.8 Allergy status to other drugs, medicaments and biological substances; Z91.040 Latex allergy status; Z79.2 Long term (current) use of antibiotics; Z79.899 Other long term (current) drug therapy
CPT/HCPCS: 96374; 99284; J1885; J2800

== ENCOUNTER → 2024-02-16 | Outpatient (CLI) | payer MEDICARE ==
[~2024-02-16] MED LIST changes: +METH-1165 PO; +NAPR-837 PO
== END ==
LOC: M RAD 16:39
PROVIDERS: ATTEND Physician Assistant Medical
DX: M79.622 Pain in left upper arm (principal)

== ENCOUNTER → 2024-03-24 | Outpatient (CLI) | payer MEDICARE | LOC: M EKG 10:02 | PROVIDERS: ATTEND Orthopaedic Surgery | DX: Z01.818 Encounter for other preprocedural examination (principal) ==

== ENCOUNTER → 2024-04-17 | Outpatient (REF) | payer MEDICARE ==
[2024-04-17 19:30] LABS: APPEARANCE, URINE HAZY (CLEAR); BACTERIA, URINE AUTO 1+ (NEGATIVE); BILIRUBIN, URINE AUTO NEGATIVE (NEGATIVE); BLOOD, URINE BLOOD NEGATIVE (NEGATIVE); COLOR, URINE YELLOW (YELLOW); GLUCOSE, URINE (UA) AUTO NEGATIVE (NEGATIVE); KETONE, URINE AUTO NEGATIVE (NEGATIVE); LEUKOCYTE ESTERASE, URINE AUTO 1+ (NEGATIVE); MUCUS, URINE SMALL (NEGATIVE); NITRITE, URINE AUTO POSITIVE (NEGATIVE); PROTEIN, URINE AUTO NEGATIVE (NEGATIVE); RBC, URINE AUTO 2 /HPF (0-3); SPECIFIC GRAVITY URINE AUTO 1.011 (1.002-1.035); SQUAMOUS EPITHELIAL CELL UR AU 4 /HPF (0-6); UROBILINOGEN, URINE AUTO 0.2 mg/dL (0.0-2.0); WBC, URINE AUTO 64 /HPF (0-3)
[2024-04-17 20:51] LABS: Trichomonas vaginalis (AMP) NOT DETECTED (NEGATIVE)
[2024-04-17 21:15] LABS: GC DNA AMPLIFICATION NEGATIVE (NEGATIVE)
== END ==
LOC: M LAB REF 18:40
PROVIDERS: ATTEND Physician Assistant
DX: N39.0 Urinary tract infection, site not specified (principal); Z11.3 Encounter for screening for infections with a predominantly sexual mode of transmission

== ENCOUNTER → 2024-09-22 | Outpatient (CLI) | payer MEDICARE, MEDICAID ==
[~2024-09-22] MED LIST changes: +BUPR-670 PO; -BUPR1TAB52 PO
[2024-09-22 12:02] LABS: BASO # 0.0 10^3/uL (0.0-0.2); BASO % 0.4 % (0.0-1.0); EOS # 0.2 10^3/uL (0.0-0.5); EOS % 2.0 % (0.0-3.0); LYMPH # 2.7 10^3/uL (1.5-5.0); LYMPH % 26.3 % (24.0-44.0); MONO # 0.8 10^3/uL (0.0-0.8); MONO % 8.2 % (2.0-8.0); NEUTROPHILS # 6.4 10^3/uL (1.5-8.5); NEUTROPHILS % 62.6 % (36.0-66.0); PLATELET COUNT, AUTOMATED 308 10^3/uL (150-450)
[2024-09-22 12:13] LABS: ESTIMATED AVERAGE GLUCOSE 108.0 MG/DL (60-110)
[2024-09-22 12:35] LABS: ALT/SGPT 26.0 U/L (7.0-40); AST/SGOT 16.0 U/L (<34); CALCIUM LEVEL 9.4 MG/DL (8.5-10.1); CARBON DIOXIDE LEVEL 26.0 MMOL/L (20-31); CHLORIDE LEVEL 110.0 MMOL/L (98-107); CHOLESTEROL LEVEL 179.0 MG/DL (<200); CHOLESTEROL RISK RATIO 4.95 (<5); CREATININE FOR GFR 0.96 MG/DL (0.55-1.30); GLOMERULAR FILTRATION RATE 78.6 (>60); LDL CHOLESTEROL 116.5 MG/DL (<100); NON-HDL-C 142.9 MG/DL; POTASSIUM SERUM 4.4 MMOL/L (3.5-5.1); SODIUM LEVEL 146.0 MMOL/L (136-145); TRIGLYCERIDES LEVEL 132.0 MG/DL (<150)
[2024-09-22 12:43] LABS: FREE T4 1.13 NG/DL (0.89-1.76)
== END ==
LOC: M PLALAB 09:01
PROVIDERS: ATTEND Student in an Organized Health Care Education/Training Program
DX: Z00.00 Encounter for general adult medical examination without abnormal findings (principal); E55.9 Vitamin D deficiency, unspecified; E03.9 Hypothyroidism, unspecified; E66.01 Morbid (severe) obesity due to excess calories; R73.03 Prediabetes; L73.2 Hidradenitis suppurativa

== ENCOUNTER → 2024-09-22 | Outpatient (CLI) | payer MEDICARE, MEDICAID | LOC: M PLALAB 08:58 | PROVIDERS: ATTEND Nurse Practitioner Family | DX: L73.2 Hidradenitis suppurativa (principal) ==

== ENCOUNTER → 2024-11-18 | Outpatient (CLI) | payer MEDICARE, MEDICAID ==
[~2024-11-18] MED LIST changes: -IBUP-1022 PO; +IBUP600T42 PO
[2024-11-18 15:10] LABS: PLATELET COUNT, AUTOMATED 325 10^3/uL (150-450)
[2024-11-18 16:20] LABS: INR 0.92
== END ==
LOC: M PLALAB 12:06
DX: K64.4 Residual hemorrhoidal skin tags (principal); Z77.128 Contact with and (suspected) exposure to other hazards in the physical environment